=== PATIENT | female | born 1985 | race African-American/Black ===

== ENCOUNTER 2021-09-17 10:33 | Inpatient (IN) | payer MEDICAID, SELFPAY ==
--- NOTE | 2021-09-17 12:05 | PC.NURSE ---
Admission Patient came from [facility]. Hx schizophrenia, depression, seizures, bipolar, hep c, ADHD. Currently homeless. Brought in by mother for erratic behaviors and agitation. Mother reports that she is not taking any of her medications. Upon arrival to unit patient's behavior is erratic and tense. Topics jump frequently. Refuses to answer many questions. Mood is labile. Unable to answer questions related to medications of diagnosis. Information pulled from hospital paperwork. Neg HCG, Neg drug screen. [ End ]
[2021-09-17 15:11] VITALS: BP 146/95; PULSE 83; RESP 16; TEMP 36.7; O2SAT 99
[2021-09-17] MEDS: acetaminophen 325 mg Tablet 650 MG PO (17:13)
[2021-09-17] MEDS: nicotine 2 mg Gum BUCCAL (18:28)
--- NOTE | 2021-09-17 19:11 | PC.NURSE ---
PRN Patient c/o mild pain and received Tylenol PRN that was effective at 1713. Utilized PRN Nicotine gum for cravings.
[2021-09-17 20:29] VITALS: BMI 24.4
[2021-09-17 21:20] VITALS: BP 133/89; PULSE 90; RESP 18; O2SAT 99
[2021-09-18 06:00] VITALS: BP 115/84; PULSE 133; RESP 18; O2SAT 99
--- NOTE | 2021-09-18 06:23 | W.PM.NPUH&PS ---
Providers/Chief Complaint Admitting Physician: Georges Lemons MD Chief Complaint: IRRATIC BEHAVIOR, 96 HR HOLD, ROOM 150-2 HPI NPU History of Present Illness Chico Rojas is a 36 year old female who presented to an outside hospital on a 96-hour hold, with affidavits reporting that she presented with her mother who reported the patient?s behavior had been erratic, and that she was not sleeping, and easily escalated. But patient reported that the reason why she was there was that her mom brought her to the hospital because ?they both have the same shoes.? They reported the patient having flight of ideas and psychomotor agitation, and they reported that she appeared to be in a state of stephen. She spilled some coffee on her coat then rolled it up in a blanket and threw it in the trash can, and then went outside to smoke a cigarette in a t-shirt when it was only 36 degrees; she was disoriented at the time. So she was transferred to [facility] and admitted to the neuropsychiatric unit for definitive treatment of those issues. She presents today being an extremely poor historian, unable to articulate much from the standpoint of question and answering; she was able to ask for basic things like something to drink or something eat and, at one point, she did ask for some ?panties and a tampon,? but as far as articulating the purpose of being here and how we can help she was very limited. She identified that she was brought to the hospital because her mom thought she was suicidal but that she would not suicidal. We discussed the fact that her medications, which she brought with her, had the medications in them and had not been refilled for awhile. She reports that those medications help. We discussed the risks, benefits, and alternatives of Abilify or Invega, given that they have long acting injectables that could assist in adherence, and she reports that she has had both of them before and they both helped, but she thinks that she may have gained weight from Invega, but she is not sure; she reported that she would consider which one to start, as is documented in this note. She denies any history of suicide attempts. Otherwise, she was very rapid in her speech, hard to keep on task, and struggled to interview. Chart records suggest that she has a history of schizophrenia versus schizoaffective disorder versus bipolar disorder. PSYCHIATRIC HISTORY: She reports she has had multiple past psychiatric inpatient stays, but she could not comment to a greater degree than that. SUBSTANCE ABUSE HISTORY: She denied any significant issues with addiction and her UDS negative. FAMILY HISTORY: Unable to obtain. DEVELOPMENTAL HISTORY: Unable to obtain. PSYCHOSOCIAL HISTORY: Non-contributory at this time, but patient has a close relationship with her mother who she reports is helpful. LEGAL HISTORY: Denied. MEDICAL HISTORY: Reported history of endometriosis, asthma, cervical cancer, and hepatitis C. Meds NPU Home Medications Medication Instructions Recorded Confirmed Last Taken Type buspirone [BuSpar] 15 mg PO BID 09/17/21 09/17/21 04/23/21 History gabapentin 400 mg PO TID 09/17/21 09/17/21 04/23/21 History lithium carbonate 450 mg PO BID 09/17/21 09/17/21 04/23/21 History lurasidone [Latuda] 80 mg PO QPM 09/17/21 09/17/21 04/23/21 History olanzapine [Zyprexa] 5 mg PO BID 09/17/21 09/17/21 04/23/21 History topiramate [Topamax] 50 mg PO BID 09/17/21 09/17/21 04/23/21 History trazodone 100 mg PO BEDTIME 09/17/21 09/17/21 04/23/21 History Allergies Allergy/AdvReac Type Severity Reaction Status Date / Time naproxen Allergy Unknown Verified 09/17/21 18:24 NSAIDS (Non-Steroidal Allergy Unknown Verified 09/17/21 18:26 Anti-Inflamma Penicillins Allergy Unknown Verified 09/17/21 18:26 Sulfa (Sulfonamide Allergy Unknown Verified 09/17/21 18:26 Antibiotics) tramadol Allergy Unknown Verified 09/17/21 18:26 Mental Status Exam MSE Comments: This is a well-nourished, well-developed, -[place] female, in hospitals scrubs with limited grooming and eye contact. No abnormal movements, except for significant psychomotor agitation. Semi-cooperative with exam in mild distress. Speech was increased rate and lower volume, and she speaks without really opening her mouth, almost with a clenched jaw. Mood described as okay; affect energized. Thought process, organized. Thought content: patient denied any suicidal or homicidal ideation, there were no delusions reported but clear paranoia noted, patient denied any auditory or visual hallucinations but at times appeared to be attending to internal stimuli attention. Attention and concentration were limited, and memory was unreliable, but none were formally tested. She is alert and oriented times three. Insight and judgment are limited. Impulse control is impaired. Vitals/I&O/Wt Last Vital Signs Temp 98.1 F 09/17/21 15:11 Pulse 90 09/17/21 21:20 Resp 18 09/17/21 21:20 BP 133/89 09/17/21 21:20 Pulse Ox 99 09/17/21 21:20 Weight last 48 hrs Weight 56.699 kg A&P Assessment and plan (1) Schizophrenia: Status: Acute Additional A&P Information This is a 36-year-old, female, with psychotic disorder, likely bipolar disorder in a manic state, or schizoaffective disorder with a manic presentation, with a negative UDS, with limited historical information in the chart or provided by her, but reporting an openness to consider a medication change. 1. Continue current medication. 2. Will encourage to initiate either Abilify or Invega so that we could offer a long acting injectable. 3. Encourage individual, group, and milieu therapy. 4. Continue q-15 minute checks for safety. Involuntary Hold Information 96 Hour Hold: 96 Hour Involuntary Admission: Yes Attestations NPU Medical Necessity Statement*: Inpatient hospitalization is medically necessary and the clinically appropriate intervention, at this time. We will monitor medications and make changes as indicated. Patient will be in the hospital for over two midnights. Likely length of stay is three to five days. Coding Level of Care Code Acute Android Ios Developer for Opal Moreau Diagnoses Schizophrenia F20.9
[2021-09-18] MEDS: OLANZapine 5 mg ODT PO ×2 (07:59→13:35)
[2021-09-18] MEDS: nicotine 2 mg Gum BUCCAL ×2 (09:45→15:27)
[2021-09-18] MEDS: acetaminophen 325 mg Tablet 650 MG PO ×2 (10:32→15:27)
[2021-09-18] MEDS: hyDROXYzine 25 mg Capsule 50 MG PO (13:35)
[2021-09-18 14:00] VITALS: BP 106/71; PULSE 90; RESP 18; TEMP 36.7; O2SAT 100
[2021-09-18] MEDS: haloperidol 5 mg Tablet PO (15:27)
[2021-09-18 22:00] VITALS: BP 118/80; PULSE 96; RESP 16; TEMP 36.8; O2SAT 98
[2021-09-19] MEDS: hyDROXYzine 25 mg Capsule 50 MG PO (04:51)
--- NOTE | 2021-09-19 05:01 | PC.NURSE ---
Hydroxizine given for noted anxiety. Patient request for medication.
[2021-09-19] MEDS: acetaminophen 325 mg Tablet 650 MG PO ×2 (05:29→11:49)
[2021-09-19 06:00] VITALS: BP 117/83; PULSE 111; RESP 20; TEMP 36.5; O2SAT 99
[2021-09-19] MEDS: OLANZapine 5 mg ODT PO ×3 (06:11→15:07)
--- NOTE | 2021-09-19 06:16 | PC.NURSE ---
Patient request for Zyprexia due to increased anxiety and agitation. Anxious affect observed. Zydis 5 mg given.
[2021-09-19] MEDS: nicotine 2 mg Gum BUCCAL ×3 (08:50→15:06)
[2021-09-19] MEDS: ARIPiprazole 10 mg Tablet PO (10:11)
--- NOTE | 2021-09-19 10:30 | W.PM.NPUPNS ---
Subjective NPU Subjective: Interval history: Himanshu presents today reporting that she has decided to try the Abilify. We discussed the possibility of an injection down the road that she really did not have specific thoughts about but reported that Abilify worked well in the past that he would be open to trying it now. Otherwise he denies any new issues, denied lethality and was open to work with the treatment team for ongoing care. Mental Status Exam MSE Comments: This is a well-nourished, well-developed, -[place] female, in hospitals scrubs with limited grooming and eye contact. No abnormal movements, except for significant psychomotor agitation. Semi-cooperative with exam in mild distress. Speech was increased rate and lower volume, and she speaks without really opening her mouth, almost with a clenched jaw. Mood described as fine; affect energized. Thought process, organized. Thought content: patient denied any suicidal or homicidal ideation, there were no delusions reported but clear paranoia noted, patient denied any auditory or visual hallucinations but at times appeared to be attending to internal stimuli attention. Attention and concentration were limited, and memory was unreliable, but none were formally tested. She is alert and oriented times three. Insight and judgment are limited. Impulse control is impaired. Vitals/I&O/Wt Last Vital Signs Temp 97.7 F 09/19/21 06:00 Pulse 111 H 09/19/21 06:00 Resp 20 H 09/19/21 06:00 BP 117/83 09/19/21 06:00 Pulse Ox 99 09/19/21 06:00 Weight last 48 hrs Weight 56.699 kg A&P Additional A&P Information (1) Schizophrenia: Additional A&P Information This is a 36-year-old, female, with psychotic disorder, likely bipolar disorder in a manic state, or schizoaffective disorder with a manic presentation, with a negative UDS, with limited historical information in the chart or provided by her, but reporting an openness to consider a medication change. 1. Continue current medication. 2. Start Abilify 10 mg p.o. every morning. 3. Encourage individual, group, and milieu therapy. 4. Continue q-15 minute checks for safety. Involuntary Hold Information 96 Hour Hold: 96 Hour Involuntary Admission: Yes Attestations NPU Medical Necessity Statement*: Inpatient hospitalization is medically necessary and the clinically appropriate intervention, at this time. We will monitor medications and make changes as indicated. Likely length of stay is three to five days. Coding Level of Care Code Acute Transportation Associate for Opal Moreau
[2021-09-19 14:00] VITALS: BP 115/79; PULSE 92; RESP 20; TEMP 36.4; O2SAT 97
[2021-09-19 22:00] VITALS: BP 113/68; PULSE 88; RESP 16; TEMP 36.9; O2SAT 99
[2021-09-20] MEDS: trazodone 50 mg Tablet PO ×2 (02:47→21:15)
[2021-09-20] MEDS: hyDROXYzine 25 mg Capsule 50 MG PO ×3 (04:01→21:16)
[2021-09-20 06:00] VITALS: RESP 18
[2021-09-20] MEDS: OLANZapine 5 mg ODT PO ×3 (06:15→21:53)
[2021-09-20] MEDS: nicotine 2 mg Gum BUCCAL ×3 (06:15→23:49)
[2021-09-20] MEDS: acetaminophen 325 mg Tablet 650 MG PO ×2 (06:15→11:39)
[2021-09-20] MEDS: ARIPiprazole 10 mg Tablet PO (09:06)
[2021-09-20 13:57] VITALS: BP 115/83; PULSE 106; RESP 18; TEMP 36.7; O2SAT 98
[2021-09-20] MEDS: atomoxetine 40 mg Capsule PO (15:01)
[2021-09-20 20:27] VITALS: BP 121/83; PULSE 95; RESP 16; TEMP 36.4; O2SAT 100
--- NOTE | 2021-09-20 20:36 | P.NPUPN_ITS ---
Subjective NPU Subjective: Interval history: Patient presents today reporting that the Abilify seems to be helping. She discussed the fact that some of her rapid thoughts are related to ADHD. We discussed the risk benefits and alternatives of initiating Strattera and she understood agreed proceed as documented in this note. We also talked about the possibility of increasing the Abilify to 15 mg p.o. every morning tomorrow from the current 10 and she understood agreed proceed as documented in this note. She continues to discuss a plan to possibly go to a [facility] is going back to mom which is also possibility but she has not decided. Mental Status Exam MSE Comments: This is a well-nourished, well-developed, -[place] female, in hospitals scrubs with limited grooming and eye contact. No abnormal movements, except for diminishing psychomotor agitation. More cooperative with exam in no acute distress. Speech was increased rate and lower volume, and she speaks without really opening her mouth, almost with a clenched jaw. Mood described as a little better; affect less energized. Thought process, organized. Thought content: patient denied any suicidal or homicidal ideation, there were no delusions reported but clear paranoia noted, patient denied any auditory or visual hallucinations but appears to be attending to internal stimuli less. Attention and concentration were improving, and memory was more reliable, but none were formally tested. She is alert and oriented times three. Insight and judgment are limited. Impulse control is limited. Vitals/I&O/Wt Last Vital Signs Temp 97.6 F 09/20/21 20:27 Pulse 95 09/20/21 20:27 Resp 16 09/20/21 20:27 BP 121/83 09/20/21 20:27 Pulse Ox 100 09/20/21 20:27 A&P Assessment and plan (1) ADHD: Status: Acute (2) Anxiety: Status: Acute Additional A&P Information (1) Schizophrenia: Additional A&P Information This is a 36-year-old, female, with psychotic disorder, likely bipolar disorder in a manic state, or schizoaffective disorder with a manic presentation, with a negative UDS, with limited historical information in the chart or provided by her, but reporting an openness to consider a medication change. 1. Continue current medication. Except start Strattera 40 mg p.o. daily with a meal. 2. Start Abilify 10 mg p.o. every morning. 3. Encourage individual, group, and milieu therapy. 4. Continue q-15 minute checks for safety. Involuntary Hold Information 96 Hour Hold: 96 Hour Involuntary Admission: Yes Attestations NPU Medical Necessity Statement*: Inpatient hospitalization is medically necessary and the clinically appropriate intervention, at this time. We will monitor medications and make changes as indicated. Likely length of stay is three to five days. Coding Level of Care Code Acute Director Reactor Projects for Opal Moreau Diagnoses ADHD F90.9 Anxiety F41.9
[2021-09-21 06:00] VITALS: RESP 18
--- NOTE | 2021-09-21 08:37 | P.NPUPN_ITS ---
Subjective NPU Subjective: Interval history: Patient presents today reporting that she is feeling better and optimistic about moving forward. She is noticeably brighter per staff and more interactive and less isolative. She reports she currently wants into her mom's place and we discussed working towards this goal by connecting with her mother to figure out how mom feels she is doing at this point. She reports that she feels the medications are working well and she denies any side effects or concerns. We discussed the likelihood of discharge by the beginning of the week. Mental Status Exam MSE Comments: This is a well-nourished, well-developed, -[place] female, in hospitals scrubs with limited grooming and eye contact. No abnormal movements More cooperative with exam in no acute distress. Speech was more normal rate and volume, and she is speaking with a much more relaxed mouth, without a clenched jaw so much. Mood described as better; affect congruent. Thought process, organized. Thought content: patient denied any suicidal or homicidal ideation, there were no delusions reported but clear paranoia noted, patient denied any auditory or visual hallucinations and appears to be less internally preoccupied. Attention and concentration were improving, and memory was more reliable, but none were formally tested. She is alert and oriented times three. Insight and judgment are limited, but improving. Impulse control is limited. Vitals/I&O/Wt Last Vital Signs Temp 97.6 F 09/20/21 20:27 Pulse 95 09/20/21 20:27 Resp 18 09/21/21 06:00 BP 121/83 09/20/21 20:27 Pulse Ox 100 09/20/21 20:27 A&P Additional A&P Information (1) ADHD: (2) Anxiety: Additional A&P Information (1) Schizophrenia: Additional A&P Information This is a 36-year-old, female, with psychotic disorder, likely bipolar disorder in a manic state, or schizoaffective disorder with a manic presentation, with a negative UDS, with limited historical information in the chart or provided by her, but reporting an openness to consider a medication change. 1. Continue current medication. Started Strattera 40 mg p.o. daily with a meal. 2. Increase Abilify to 15 mg p.o. every morning. 3. Encourage individual, group, and milieu therapy. 4. Continue q-15 minute checks for safety. Involuntary Hold Information 96 Hour Hold: 96 Hour Involuntary Admission: Yes Attestations NPU Medical Necessity Statement*: Inpatient hospitalization is medically necessary and the clinically appropriate intervention, at this time. We will monitor medications and make changes as indicated. Likely length of stay is 2-4 days. Coding Level of Care Code Acute Machine Operator Slitter Technician for Opal Moreau
[2021-09-21] MEDS: atomoxetine 40 mg Capsule PO (08:57)
[2021-09-21] MEDS: ARIPiprazole 10 mg Tablet 15 MG PO (08:58)
[2021-09-21] MEDS: nicotine 2 mg Gum BUCCAL ×3 (08:58→15:31)
[2021-09-21] MEDS: hyDROXYzine 25 mg Capsule 50 MG PO ×2 (11:52→21:11)
[2021-09-21 14:00] VITALS: BP 110/67; PULSE 87; RESP 17; TEMP 36.2; O2SAT 100
[2021-09-21] MEDS: acetaminophen 325 mg Tablet 650 MG PO (15:31)
[2021-09-21] MEDS: OLANZapine 5 mg ODT PO (15:31)
[2021-09-21 20:43] VITALS: BP 89/51; PULSE 18; RESP 92; TEMP 36.9; O2SAT 100
[2021-09-21] MEDS: trazodone 50 mg Tablet PO (21:11)
[2021-09-21] MEDS: haloperidol 5 mg Tablet PO (23:10)
[2021-09-21] MEDS: benztropine 1 mg Tablet PO (23:10)
[2021-09-22] MEDS: hyDROXYzine 25 mg Capsule 50 MG PO ×2 (04:21→12:44)
[2021-09-22] MEDS: acetaminophen 325 mg Tablet 650 MG PO ×2 (05:05→13:23)
[2021-09-22 06:00] VITALS: BP 110/73; PULSE 77; RESP 15; TEMP 36.9; O2SAT 98; BMI 24.4
[2021-09-22] MEDS: ARIPiprazole 10 mg Tablet 15 MG PO (08:33)
[2021-09-22] MEDS: atomoxetine 40 mg Capsule PO (08:34)
[2021-09-22] MEDS: nicotine 2 mg Gum BUCCAL ×2 (08:34→16:20)
--- NOTE | 2021-09-22 13:56 | P.NPUPN_ITS ---
Subjective NPU Subjective: Interval history: Chico presents today endorsing that she is doing better and improving on the higher dose of Abilify. She is very focused on being discharged soon as possible but is cooperating with the plan to make sure she has a safe and viable plan to continue her medication and have a safe environment with housing. We are attempting to reach mom to see if she could return home today we have agreed to work with the treatment team in the morning for discharge in the next 48 hours. Mental Status Exam MSE Comments: This is a well-nourished, well-developed, -[place] female, in hospitals scrubs with limited grooming and eye contact. No abnormal movements More cooperative with exam in no acute distress. Speech was more normal rate and volume, and she is speaking with a much more relaxed mouth, without a clenched jaw as much. Mood described as better; affect congruent. Thought process, organized. Thought content: patient denied any suicidal or homicidal ideation, there were no delusions reported but clear paranoia noted, patient denied any auditory or visual hallucinations and appears to be less internally preoccupied. Attention and concentration were improving, and memory was more reliable, but none were formally tested. She is alert and oriented times three. Insight and judgment are limited, but improving. Impulse control is limited, but improving. Vitals/I&O/Wt Last Vital Signs Temp 98.5 F 09/22/21 06:00 Pulse 77 09/22/21 06:00 Resp 15 09/22/21 06:00 BP 110/73 09/22/21 06:00 Pulse Ox 98 09/22/21 06:00 Weight last 48 hrs Weight 56.699 kg A&P Additional A&P Information (1) ADHD: (2) Anxiety: Additional A&P Information (1) Schizophrenia: Additional A&P Information This is a 36-year-old, female, with psychotic disorder, likely bipolar disorder in a manic state, or schizoaffective disorder with a manic presentation, with a negative UDS, with limited historical information in the chart or provided by her, but reporting an openness to consider a medication change. 1. Continue current medication. Started Strattera 40 mg p.o. daily with a meal. 2. Increased Abilify to 15 mg p.o. every morning. 3. Encourage individual, group, and milieu therapy. 4. Continue q-15 minute checks for safety. Involuntary Hold Information 96 Hour Hold: 96 Hour Involuntary Admission: Yes Attestations NPU Medical Necessity Statement*: Inpatient hospitalization is medically necessary and the clinically appropriate intervention, at this time. We will monitor medications and make changes as indicated. Likely length of stay is 2-4 days. Coding Level of Care Code Acute Lapping Machine Set Up Operator for Opal Moreau
[2021-09-22 14:00] VITALS: BP 106/69; PULSE 76; RESP 18; TEMP 37; O2SAT 100
[2021-09-22] MEDS: OLANZapine 5 mg ODT PO (14:14)
[2021-09-22 20:39] VITALS: BP 103/58; PULSE 86; RESP 15; TEMP 36.6; O2SAT 95
[2021-09-23] MEDS: trazodone 50 mg Tablet PO (00:42)
[2021-09-23] MEDS: hyDROXYzine 25 mg Capsule 50 MG PO ×3 (00:42→22:40)
[2021-09-23] MEDS: acetaminophen 325 mg Tablet 650 MG PO ×4 (00:49→17:38)
[2021-09-23] MEDS: OLANZapine 5 mg ODT PO ×4 (02:44→22:40)
--- NOTE | 2021-09-23 02:45 | PC.NURSE ---
pt awoke by another pt, requested med for anxiety, zyprexa 5mg SL given.
[2021-09-23 06:00] VITALS: BP 117/71; PULSE 119; RESP 18; TEMP 36.7; O2SAT 95
[2021-09-23] MEDS: nicotine 2 mg Gum BUCCAL ×2 (07:09→08:42)
[2021-09-23] MEDS: ARIPiprazole 10 mg Tablet 15 MG PO (08:41)
[2021-09-23] MEDS: atomoxetine 40 mg Capsule PO (08:42)
[2021-09-23 09:29] LABS: Add Urine Culture? No; Add Urine Microscopic? YES; Bacteria Urine TRACE /hpf; Bilirubin Urine Neg (Negative); Blood Urine Neg (Negative); Glucose Urine UA Norm (Normal); Ketones Urine Negative (Negative); Leukocyte Esterase Urine 1+ (Negative); Nitrate Urine Negative (Negative); Protein Urine Neg (Negative); Specific Gravity, Urine 1.005 (1.005-1.030); Squamous Epithelial Cell Urine 0-4 /hpf (0-5); Urine Appearance Clear (CLEAR); Urine Color Straw (Yellow); Urobilinogen Urine Norm (Negative); pH Urine 6 (5-7)
--- NOTE | 2021-09-23 12:42 | NPU.GN ---
[facility] Group Topic:Edward Cline / Discussion General Mood of Group:Chico did attend and participated in group today. She was in a decent mood, social with this rfp writer and others . She informed this rfp writer that she was homeless so she completed to [facility] New Patient packet with this rfp writer. Chico hygiene was ok .
[2021-09-23 14:00] VITALS: BP 113/72; PULSE 92; RESP 18; TEMP 36.5; O2SAT 100
[2021-09-23 14:32] LABS: SARS Covid-2 Antigen Negative (Negative)
[2021-09-23 15:38] VITALS: BP 113/72; PULSE 92; RESP 18; TEMP 36.5; O2SAT 100
--- NOTE | 2021-09-23 19:51 | P.NPUPN_ITS ---
Subjective NPU Subjective: Interval history: Patient presents today sad because her mother is not doing well her come home but very invested in finding some kind of long-term so that she can leave. We made arrangements with a long-term but unfortunately as has been the case with Medicaid and otherwise we were unable to get the ride to show up and they eventually canceled and scheduled for tomorrow morning. Mental Status Exam MSE Comments: This is a well-nourished, well-developed, -[place] female, in hospitals scrubs with improved grooming and eye contact. No abnormal movements More cooperative with exam in no acute distress. Speech was more normal rate and volume, and she is speaking with a much more relaxed mouth, without a clenched jaw as much. Mood described as better; affect congruent. Thought process, organized. Thought content: patient denied any suicidal or homicidal ideation, there were no delusions reported and paranoia resolving, patient denied any auditory or visual hallucinations. Attention and concentration were improving, and memory was more reliable, but none were formally tested. She is alert and oriented times three. Insight and judgment are limited, but improving. Impulse control is limited, but improving. Vitals/I&O/Wt Last Vital Signs Temp 97.7 F 09/23/21 15:38 Pulse 92 09/23/21 15:38 Resp 18 09/23/21 21:31 BP 113/72 09/23/21 15:38 Pulse Ox 100 09/23/21 15:38 A&P Assessment and plan (1) Anxiety: Status: Acute (2) ADHD: Status: Acute (3) Schizophrenia: Status: Acute Additional A&P Information This is a 36-year-old, female, with psychotic disorder, likely bipolar disorder in a manic state, or schizoaffective disorder with a manic presentation, with a negative UDS, with limited historical information in the chart or provided by her, but reporting an openness to consider a medication change. 1. Continue current medication. Started Strattera 40 mg p.o. daily with a meal. 2. Increased Abilify to 15 mg p.o. every morning. 3. Encourage individual, group, and milieu therapy. 4. Continue q-15 minute checks for safety. 5. Plan for DC in the morning. Involuntary Hold Information 96 Hour Hold: 96 Hour Involuntary Admission: Yes Attestations NPU Medical Necessity Statement*: Inpatient hospitalization is medically necessary and the clinically appropriate intervention, at this time. We will monitor medications and make changes as indicated. Likely length of stay is 1-3 days. Coding Level of Care Code Acute Machine Programmer for [facility] Fwd Diagnoses Anxiety F41.9 ADHD F90.9 Schizophrenia F20.9
[2021-09-23 21:31] VITALS: RESP 18
--- NOTE | 2021-09-23 22:30 | PC.NURSE ---
pt requested anxiety meds. zyprexa 5mg SL and vistaril 50mg po given.
--- NOTE | 2021-09-24 00:45 | PC.NURSE ---
pt requested sleep med, trazodone 50mg po given.
--- NOTE | 2021-09-24 02:00 | PC.NURSE ---
pt resting quietly with both eyes closed.
[2021-09-24] MEDS: acetaminophen 325 mg Tablet 650 MG PO ×2 (03:22→10:44)
--- NOTE | 2021-09-24 05:16 | PC.NURSE ---
pt resting quietly with both eyes closed.
[2021-09-24 05:51] VITALS: BP 138/92; PULSE 106; RESP 16; TEMP 36.8; O2SAT 94
[2021-09-24] MEDS: OLANZapine 5 mg ODT PO (05:55)
[2021-09-24] MEDS: nicotine 2 mg Gum BUCCAL ×2 (05:55→08:01)
--- NOTE | 2021-09-24 07:01 | W.PM.NPUDCS ---
Diagnoses at Discharge Discharge Diagnosis (1) ADHD: Status: Acute (2) Anxiety: Status: Acute Reason for Visit Reason for Visit: IRRATIC BEHAVIOR, 96 HR HOLD, ROOM 150-2 Brief History: History of Present Illness Chico Rojas is a 36 year old female who presented to an outside hospital on a 96-hour hold, with affidavits reporting that she presented with her mother who reported the patient?s behavior had been erratic, and that she was not sleeping, and easily escalated. But patient reported that the reason why she was there was that her mom brought her to the hospital because ?they both have the same shoes.? They reported the patient having flight of ideas and psychomotor agitation, and they reported that she appeared to be in a state of stephen. She spilled some coffee on her coat then rolled it up in a blanket and threw it in the trash can, and then went outside to smoke a cigarette in a t-shirt when it was only 36 degrees; she was disoriented at the time. So she was transferred to [facility] and admitted to the neuropsychiatric unit for definitive treatment of those issues. She presents today being an extremely poor historian, unable to articulate much from the standpoint of question and answering; she was able to ask for basic things like something to drink or something eat and, at one point, she did ask for some ?panties and a tampon,? but as far as articulating the purpose of being here and how we can help she was very limited. She identified that she was brought to the hospital because her mom thought she was suicidal but that she would not suicidal. We discussed the fact that her medications, which she brought with her, had the medications in them and had not been refilled for awhile. She reports that those medications help. We discussed the risks, benefits, and alternatives of Abilify or Invega, given that they have long acting injectables that could assist in adherence, and she reports that she has had both of them before and they both helped, but she thinks that she may have gained weight from Invega, but she is not sure; she reported that she would consider which one to start, as is documented in this note. She denies any history of suicide attempts. Otherwise, she was very rapid in her speech, hard to keep on task, and struggled to interview. Chart records suggest that she has a history of schizophrenia versus schizoaffective disorder versus bipolar disorder. PSYCHIATRIC HISTORY: She reports she has had multiple past psychiatric inpatient stays, but she could not comment to a greater degree than that. SUBSTANCE ABUSE HISTORY: She denied any significant issues with addiction and her UDS negative. FAMILY HISTORY: Unable to obtain. DEVELOPMENTAL HISTORY: Unable to obtain. PSYCHOSOCIAL HISTORY: Non-contributory at this time, but patient has a close relationship with her mother who she reports is helpful. LEGAL HISTORY: Denied. MEDICAL HISTORY: Reported history of endometriosis, asthma, cervical cancer, and hepatitis C. Hospital Course Hospital Course She slowly acclimated to the individual, group and milieu therapies provided. We were able to initiate Abilify and titrated to 15 mg p.o. daily as well as Strattera 40 mg daily with significant improvement. We are able to work with her getting connected with follow-up and she was able to contract for safety outside the hospital prior to discharge. During the hospitalization, patient had routine laboratory studies which were within normal limits except for few outliers. Additionally there was a general medical evaluation which was also within normal limits and revealed no new acute processes. Discharge Summary: At the time of discharge, lethality was denied and psychosis was resolving. Mood and anxiety were well managed. Patient endorsed a plan to avoid all drugs of abuse and follow-up with the aftercare recommendations of the treatment team. Patient was evaluated and deemed to be absent credible lethality, and had achieved the maximum benefit from an inpatient hospitalization, so was discharged. Involuntary Hold Information 96 Hour Hold: 96 Hour Involuntary Admission: Yes Mental Status Exam MSE Comments: This is a well-nourished, well-developed, -[place] female, in hospitals scrubs with improved grooming and eye contact. No abnormal movements More cooperative with exam in no acute distress. Speech was more normal rate and volume, and she is speaking with a much more relaxed mouth, without a clenched jaw as much. Mood described as better; affect congruent. Thought process, organized. Thought content: patient denied any suicidal or homicidal ideation, there were no delusions reported and paranoia resolving, patient denied any auditory or visual hallucinations. Attention and concentration were improving, and memory was more reliable, but none were formally tested. She is alert and oriented times three. Insight and judgment are limited, but improving. Impulse control is limited, but improving. Discharge Data Data Completed and Pending: Labs from last 24 hours 09/23/21 09/23/21 12: 08:33 Urine Color Straw Urine Appearance Clear Urine pH 6 Ur Specific Gravit y 1.005 Urine Protein Neg Urine Glucose (UA) Norm Urine Ketones Negative Urine Blood Neg Urine Nitrate Negative Urine Bilirubin Neg Urine Urobilinogen Norm Ur Leukocyte Carla ase 1+ H Urine RBC None Urine WBC 5-10 H Ur Squamous Epith Cells 0-4 H Amorphous Sediment Not Reportable Urine Bacteria Trace SARS-CoV-2 Ag (Rap id) Negative Vitals: Last Vital Signs Temp 98.1 F 09/23/21 06:00 Pulse 119 H 09/23/21 06:00 Resp 18 09/23/21 06:00 BP 117/71 09/23/21 06:00 Pulse Ox 95 09/23/21 06:00 Discharge Plan Discharge Patient Disposition: Home Condition: Stable Prescriptions: New aripiprazole 10 mg Tablet 15 mg PO DAILY 30 Days Qty: 30 RF: 1 atomoxetine 40 mg Capsule 40 mg PO DAILY 30 Days Qty: 60 RF: 1 Continued trazodone 100 mg Tablet 100 mg PO BEDTIME 30 Days Qty: 30 RF: 1 Discontinued gabapentin 400 mg Capsule 400 mg PO TID RF: 0 olanzapine [Zyprexa] 5 mg Tablet 5 mg PO BID RF: 0 lithium carbonate 450 mg Tablet Extended Release 450 mg PO BID RF: 0 buspirone [BuSpar] 15 mg Tablet 15 mg PO BID RF: 0 topiramate [Topamax] 50 mg Tablet 50 mg PO BID RF: 0 Latuda 80 mg Tablet 80 mg PO QPM RF: 0 Discharge Orders: Discharge Order (Routine); Ordered 09/24/21 Ordered By: Georges Lemons Referrals: [facility] [Outside] - 1-3 days (Walk in on Tuesdays or from 7:30am to 3:00pm to complete an initial assessment. ) Discharge Diet: Regular Discharge Activity: Resume usual activity Patient Instructions: Opioid Safety Discharge Attestations NPU Time Spent in Discharge Care*: less than 30 min Specific Discharge Activities: Specific discharge activities: educating patient, discussing with case management director/social workers/dc planners, documenting/other paperwork and evaluating patient/reviewing data Coding Level of Care Code Acute Chg FW DC note Diagnoses ADHD F90.9 Anxiety F41.9
[2021-09-24] MEDS: atomoxetine 40 mg Capsule PO (08:01)
[2021-09-24] MEDS: ARIPiprazole 10 mg Tablet 15 MG PO (08:02)
[2021-09-24] MEDS: hyDROXYzine 25 mg Capsule 50 MG PO (12:11)
--- NOTE | 2021-09-24 13:04 | NPU.GN ---
[facility] Unit Group Topic: Edward Cline General Mood of Group: Chico did attend group and participated today. She seemed to have a good mind set and was is a decent mood.
== END 2021-09-24 14:08 | disposition home or self-care (01) | DRG 885 ==
PROVIDERS: Admitting Provider Psychiatry & Neurology Psychiatry; Visit Provider Psychiatry & Neurology Psychiatry
DX: F25.0 Schizoaffective disorder, bipolar type (principal); F41.9 Anxiety disorder, unspecified; F90.9 Attention-deficit hyperactivity disorder, unspecified type; N80.9 Endometriosis, unspecified; J45.909 Unspecified asthma, uncomplicated; Z85.41 Personal history of malignant neoplasm of cervix uteri; Z86.19 Personal history of other infectious and parasitic diseases
CPT/HCPCS: 81001; 87426; 97150; 97165